=== PATIENT | male | born 1990 | race Caucasian/White ===

== ENCOUNTER 2024-08-02 11:15 | Inpatient (IN) | payer OTHER ==
[2024-08-02 11:42] VITALS: BMI 18.4
[2024-08-02] MEDS ORDERED: NALOXONE (NARCAN) HCL 4 MG/0.1 ML SPRAY NS PRN (13:02)
[2024-08-02] MEDS ORDERED: guaiFENesin 600 MG TABLET.ER (FP) PO PRN (13:02)
[2024-08-02] MEDS ORDERED: ONDANSETRON *ODT* 4 MG TABLET SL PRN (13:02)
[2024-08-02] MEDS ORDERED: ACETAMINOPHEN 325 MG TABLET (FP) PO PRN (13:02)
[2024-08-02] MEDS ORDERED: NICOTINE POLACRILEX 2 MG LOZENGE BC PRN (13:02)
[2024-08-02] MEDS ORDERED: P-EPHED 60MG/TRIPROLIDI 2.5MG TABLET PO PRN (13:02)
[2024-08-02] MEDS ORDERED: BISMUTH SUBSALICYLATE 262 MG/15 ML BTL PO PRN (13:02)
[2024-08-02] MEDS ORDERED: DICYCLOMINE HCL 10 MG CAPSULE PO PRN (13:02)
[2024-08-02] MEDS ORDERED: BENZONATATE 200 MG CAPSULE PO PRN (13:02)
[2024-08-02] MEDS ORDERED: BENZOCAINE/MENTHOL (CHLORASEPTIC ) LOZENGE MM PRN (13:02)
[2024-08-02] MEDS ORDERED: MAG HYDROX/AL HYDROX/SIMETH 30 ML UNIT-DOSE CUP PO PRN (13:02)
[2024-08-02] MEDS ORDERED: IBUPROFEN 400 MG TABLET (FP) PO PRN (13:02)
[2024-08-02] MEDS ORDERED: LOPERAMIDE HCL 2 MG CAPSULE PO PRN (13:02)
[2024-08-02] MEDS ORDERED: POLYETHYLENE GLYCOL (HEALTHYLAX) 3350 17 GM PACKET PO PRN (13:02)
[2024-08-02] MEDS ORDERED: methaDONE HCL 10 MG TABLET (FOR DETOX USE ONLY) ONE (14:17)
[2024-08-02] MEDS: methaDONE HCL 10 MG TABLET (FOR DETOX USE ONLY) PO ONE (14:25)
[2024-08-02] MEDS: NICOTINE POLACRILEX 2 MG GUM BUC PRN (15:50)
[2024-08-02] MEDS: MELATONIN 5 MG TABLETS PO SCH (22:25)
[2024-08-02] MEDS: THIAMINE 100 MG TABLET PO SCH (22:25)
[2024-08-02] MEDS: cloNIDine HCL 0.1 MG TABLET PO PRN (22:26)
[2024-08-02] MEDS: METHOCARBAMOL 500 MG TABLET PO PRN (22:27)
[2024-08-03] MEDS: PRENATAL VITAMINS W/ FOLIC ACID TABLET (FP) PO SCH (10:04)
[2024-08-03 13:20] LABS: HEMATOCRIT 39.4 % (35.4-49); HEMOGLOBIN 13.2 GM/dL (11.7-16.9); MCH 28.1 pg (25.7-33.7); MCHC 33.5 g/dl (32.0-35.9); MEAN CELL VOLUME 83.9 fl (80-96); MEAN PLT VOLUME 10.3 fl (7.5-11.1); PLATELET COUNT 174 10^3/uL (134-434); RDW 14.7 % (11.9-15.9)
[2024-08-03 13:28] LABS: POTASSIUM 4.4 mmol/L (3.5-5.1)
[2024-08-03 13:30] LABS: ALBUMIN 3.7 g/dl (3.4-5.0); CALCIUM 9.2 mg/dL (8.5-10.1)
[2024-08-03 13:33] LABS: BLOOD UREA NITROGEN 10.8 mg/dL (7-18); CREATININE 0.8 mg/dL (0.55-1.3)
[2024-08-03 13:35] LABS: BILIRUBIN,TOTAL 0.3 mg/dL (0.2-1); TOT PROT 6.5 g/dl (6.4-8.2)
[2024-08-03] MEDS: QUEtiapine FUMARATE 50 MG TABLET PO SCH (22:06)
[2024-08-04] MEDS: methaDONE HCL 10 MG TABLET (FOR DETOX USE ONLY) PO ONE (10:10)
[2024-08-05] MEDS: MAGNESIUM HYDROX 2400MG/30ML ORAL SUSPENSION 30 ML CUP PO PRN (15:05)
[2024-08-05] MEDS: IBUPROFEN 600 MG TABLET (FP) PO PRN (17:41)
[2024-08-06] MEDS: methaDONE HCL 10 MG TABLET (FOR DETOX USE ONLY) PO ONE (10:18)
[2024-08-07] MEDS: NALOXONE (NYS OPIOID OVERDOSE PROGRAM) 4 MG/0.1 ML SPRAY NS SCH (11:49)
[2024-08-07 20:37] VITALS: RESP 16
[2024-08-08 13:03] VITALS: BP 151/86; PULSE 75; TEMP 97.7
== END 2024-08-08 13:47 | disposition other institution (70) | DRG 773 ==
LOC: YASAS 11:15 → Y3N 14:08
PROVIDERS: ADMIT Allergy & Immunology; ATTEND Surgery
PROC: HZ2ZZZZ Detoxification Services for Substance Abuse Treatment (ICD-10-PCS; principal; 2024-08-02)
DX: F11.23 Opioid dependence with withdrawal (principal); F14.20 Cocaine dependence, uncomplicated; F12.20 Cannabis dependence, uncomplicated; F17.210 Nicotine dependence, cigarettes, uncomplicated; F19.282 Other psychoactive substance dependence with psychoactive substance-induced sleep disorder; F19.24 Other psychoactive substance dependence with psychoactive substance-induced mood disorder; G47.00 Insomnia, unspecified; Z59.02 Unsheltered homelessness
CPT/HCPCS: 36415; 80053; 80305; 80307; 85027; 86780